=== PATIENT | male | born 1945 | race Caucasian/White ===

== ENCOUNTER 2016-11-27 05:37 | Inpatient (IN) ==
--- NOTE | 2016-11-13 15:29 | EKG Report ---
Stationary ECG Study [facility] Test Date: 11/13/2016 3:27:04 PM Pat Name: EDIS KELLEY Department: Room: Gender: M Retail Field Supervisor: starla 11/27/16 laura : 1945 Requested by: Glenn Melvin Order Number: [id number] Reading MD: HAO COATES Intervals Center Rate: 68 P: 48 MT: 193 QRS: 19 QRSD: 95 T: 34 QT: 387 QTc: 404 Interpretive Statements SINUS RHYTHM Electronically Signed On 11-13-16 18:12:50 CDT by HAO COATES [email or web address]
[2016-11-13 15:55] LABS: Basophils # 0.1 10*3/uL (0.0-0.2); Basophils % 0.9 % (0.0-0.8); Eosinophils # 0.6 10*3/uL (0.0-0.87); Eosinophils % 8.7 % (0.00-10.9); Hematocrit 40.3 VOL% (42.0-52.0); Hemoglobin 13.7 GM/DL (14.0-18.0); Immature Granulocytes % 0.6 %; Immature Granulocytes Absolute 0.04 #; Lymphocytes # 0.9 10*3/uL (1.4-4.0); Lymphocytes % 13.2 % (21.2-54.2); Mean Corpuscular Hemoglobin 30 PG (27-34); Mean Corpuscular Volume 87.8 FL (87-102); Mean Platelet Volume 8.8 FL (9.6-12.0); Monocytes # 0.8 10*3/uL (0.11-0.8); Monocytes % 11.1 % (1.7-12.7); Neutrophils # 4.5 10*3/uL (1.4-7.4); Neutrophils % 65.5 % (38.7-73.9); Platelet Count 254 T/CUMM (130-400); Red Blood Count 4.59 MC/CUMM (3.8-5.5); Red Cell Distribution Width 12.3 % (9.3-17.3); White Blood Count 6.9 T/CUMM (4-12)
[2016-11-13 15:59] LABS: Apearance,Urine CLEAR (Clear); Bilirubin,Urine Negative (Negative); Blood, Urine Negative (Negative); Glucose,Urine (UA) Negative (Negative); Ketones,Urine 5 mg/dL (Negative); Mucus,Urine Occasional /LPF (Occasional); Nitrite,Urine Negative (Negative); Protein,Urine Negative; RBC,Urine 1 /HPF (0-4); Urine Color Yellow (Yellow); Urine Specific Gravity 1.024 (1.001-1.035); Urine Urobilinogen < 2.0 EU/DL (0.2-1.0); WBC,Urine 1 /HPF (0-6)
[2016-11-13 16:09] LABS: PT Patient Result 11.1 SECS; Partial Thromboplastin Time 27.3 SECS (0-40)
[2016-11-13 16:29] LABS: Alanine Aminotransferase 15 U/L (16-61); Albumin 3.6 G/DL (3.4-5.0); Alkaline Phosphatase 84 U/L (45-117); Aspartate Amino Transferase 20 U/L (0-37); Bilirubin,Total < 0.39 MG/DL (0.2-1.0); Blood Urea Nitrogen 20 MG/DL (7-18); Calcium 9.4 MG/DL (8.5-10.1); Glucose 94 MG/DL (74-106); Osmolality,Calculated 283.3 MOS/KG (273-304); Potassium 3.7 MMOL/L (3.5-5.1); Sodium 141 MMOL/L (136-145); Total Protein 6.8 G/DL (6.4-8.3)
[2016-11-27] MEDS ORDERED: VANCOMYCIN INJ 1,000 MG in SODIUM CHLORIDE 0.9% 250 ML IV ONE ×2 (06:00→18:14)
--- NOTE | 2016-11-27 06:48 | History and Physical Update ---
History and Physical Update - History and Physical H&P was reviewed, the patient examined and there: are no changes in the patients condition since last H&P was completed.
[2016-11-27] MEDS ORDERED: FAMOTIDINE 20 MG TABLET PO ONE (06:49)
[2016-11-27] MEDS ORDERED: DIAZEPAM 5 MG TABLET PO ONE (06:50)
[2016-11-27] MEDS ORDERED: fentaNYL 100 MCG/2 ML VIAL ONE (06:54)
[2016-11-27] MEDS ORDERED: PROPOFOL 200 MG/20 ML VIAL IV ONE ×2 (06:54→10:25)
[2016-11-27] MEDS ORDERED: ACETAMINOPHEN 1,000 MG/100 ML VIAL IV ONE (06:55)
[2016-11-27] MEDS ORDERED: SODIUM CHLORIDE 0.9% 250 ML IV ONE (06:55)
[2016-11-27] MEDS ORDERED: VANCOMYCIN 1,000 MG VIAL ONE (07:30)
[2016-11-27] MEDS ORDERED: ceFAZolin 1,000 MG VIAL ONE (07:30)
[2016-11-27] MEDS ORDERED: DIAZEPAM 5 MG TABLET ONE (07:31)
[2016-11-27] MEDS ORDERED: SODIUM CHLORIDE 0.9% 100 ML IV ONE (07:31)
[2016-11-27] MEDS ORDERED: FAMOTIDINE 20 MG TABLET ONE (07:31)
[2016-11-27] MEDS: LACTATED RINGERS 1,000 ML IV SCH ×4 (08:00→20:17)
[2016-11-27] MEDS ORDERED: TRANEXAMIC ACID 1,000 MG/10 ML VIAL IV ONE (09:14)
[2016-11-27] MEDS ORDERED: BENZONATATE 100 MG CAPSULE PO PRN (10:10)
[2016-11-27] MEDS ORDERED: diphenhydrAMINE CAP 25 MG CAPSULE PO PRN (10:13)
[2016-11-27] MEDS ORDERED: ONDANSETRON 4 MG/2 ML VIAL IV PRN (10:13)
[2016-11-27] MEDS ORDERED: HYDROmorphone 2 MG/1 ML VIAL IV PRN ×2 (10:13)
[2016-11-27] MEDS ORDERED: oxyCODONE IR 5 MG TABLET PO PRN ×2 (10:13)
[2016-11-27] MEDS ORDERED: MAGNESIUM HYDROXIDE SUSP 30 ML UDCUP PO PRN (10:13)
--- NOTE | 2016-11-27 10:17 | Operative Note ---
Date of procedure: 11/27/16 Procedure: DIAGNOSIS: Left knee primary osteoarthrosis PROCEDURE: Left total knee arthroplasty (cpt #32486) SURGEON: She ANESTHESIA: Spinal with a postoperative adductor canal block PROCEDURE and FINDINGS: After adequate was induced, the patient's knee was prepped and draped in the usual sterile fashion. The limb was exsanguinated with Esmarch. Tourniquet was inflated to 300 mmHg. A median parapatellar approach was made. Femur was cut using an intramedullary guide and a 4 in 1 cutting jig in 5 degrees of valgus. ACL and menisci were excised. Tibia was cut using intramedullary guide. Patella was cut using freehand technique. Components were trialed. Tibial fin was prepared. Components are cemented in place using Palacos cement and modern cementing techniques. Cement was removed. A 1/8 inch Hemovac drain was placed. The knee was well-balanced and full range of motion with central tracking patella. Deep layers closed with 0-0 Vicryl. Superficial layers were closed with 2-0 and 3-0 Vicryl. Skin was approximated with sona. Triple antibiotic ointment and a sterile dressing was applied. Patient was transferred to recovery. A postoperative adductor canal block is anticipated. COMPONENTS: The Holly Persona system was used. 10 CR standard femur, G natural tibia, 10 mm liner, 35 mm patella TOURNIQUET TIME: 35 minutes Surgeon / Physician: Glenn Nowak Jr. Results - Labs CBC & BMP: 11/13/16 15:43 11/13/16 15:43 Discharge Plan - Discharge Medications No Action Simvastatin [Zocor] 80 mg PO BEDTIME Sertraline HCl 150 mg PO QAM Divalproex [Depakote] 500 mg PO BID Carvedilol [Coreg] 6.25 mg PO BID Meloxicam [Mobic] 15 mg PO QAM Magnesium Oxide [Magnesium] 500 mg PO Q7DAY Coenzyme Q10 400 mg PO BEDTIME Megakrill 400 mg PO BEDTIME Red Yeast Rice 1,200 mg PO BEDTIME Trazodone HCl 100 mg PO BEDTIME HYDROcodone/ACETAMIN 10-325 [[place] 10-325] 1 tablet PO TID PRN PRN Reason: Pain Theophylline ER Tab 150 mg PO BID Loratadine Tab [Claritin Tab] 10 mg PO QAM Mirtazapine [Remeron] 45 mg PO BEDTIME Aspirin [Ecotrin] 81 mg PO BEDTIME Glucosamine/MSM/Chondroitin A [Glucosamine Chondroit MSM Tab] 1 each PO BEDTIME hydroCHLOROthiazide [Hydrochlorothiazide] 12.5 mg PO QOTHER DAY Spironolactone 12.5 mg PO QOTHER DAY guaiFENesin [Guaifenesin] 400 mg PO TID Tiotropium Inhalation [Spiriva Handihaler] 18 mcg INH DAILY Prazosin [Minipress] 3 mg PO BEDTIME Melatonin/Pyridoxine HCl (B6) [Melatonin 3 mg Tablet] 12 mg PO BEDTIME Benzonatate 200 mg PO TID PRN PRN Reason: Cough Montelukast Tab [Singulair Tab] 10 mg PO DAILY amLODIPine [Norvasc] 5 mg PO DAILY - Follow Up or Referral - Forms/Instructions
[2016-11-27] MEDS ORDERED: ROPIVACAINE 0.5% 30 ML VIAL ONE (10:24)
--- NOTE | 2016-11-27 10:24 | Anesthesia Post-Op ---
Anesthesia Post OP - Post Ansesthetic Evaluation Patient seen in post op: Yes Resp: within normal limits CV: within normal limits Mental: within normal limits Temp: within normal limits [id number]: within normal limits Nausea and Vomiting: within normal limits Pain: within normal limits
[2016-11-27] MEDS ORDERED: LACTATED RINGERS 1,000 ML IV ONE (10:26)
[2016-11-27] MEDS ORDERED: KETAMINE 500 MG/10 ML VIAL ONE (10:26)
[2016-11-27] MEDS ORDERED: SODIUM CHLORIDE 0.9% 1,000 ML IV ONE (10:26)
[2016-11-27] MEDS ORDERED: KETOROLAC 30 MG/1 ML VIAL ONE (11:10)
[2016-11-27] MEDS: KETOROLAC 30 MG/1 ML VIAL IV SCH ×3 (11:10→22:46)
--- NOTE | 2016-11-27 11:55 | XRay Report ---
XR knee 2V LT Clinical Information: Joint replacement (left knee) Comparison: 12/31/2012 Findings: Status post left total knee arthroplasty. Hardware appears in position with no evidence of loosening or failure. Overlying soft tissue drains are noted. Prepatellar soft tissue swelling is also noted with skin snoa, as expected. Impression: No acute findings. Postsurgical changes without evidence of acute complication. PROCEDURE INTERPRETED AT [facility] DEPARTMENT OF RADIOLOGY Final Report Signed by: Ronal Patel
--- NOTE | 2016-11-27 14:08 | Orthopedic Progress Note ---
Orthopedics - Subjective Interval history: Mr. Dumont is doing extraordinarily well. He is comfortable. He can perform straight leg raise. Neurovascularly intact. Dressing is clean, dry and intact. Continue per protocol. Anticipate discharge tomorrow with outpatient physical therapy. Exam - Constitutional Vitals: Period Temp Pulse Resp BP Sys/Heart Pulse Ox Last 24 Hr 97.2 F-98.0 F 46-72 16-18 96-140/64-94 94-99 Results - Labs CBC & BMP: 11/13/16 15:43 11/13/16 15:43
[2016-11-27] MEDS: ceFAZolin 2,000 MG in PREMIX 1 EACH IV SCH ×2 (14:40→22:47)
[2016-11-27] MEDS: ACETAMINOPHEN 500 MG TABLET PO SCH ×2 (14:41→20:18)
--- NOTE | 2016-11-27 18:13 | Cardiology Consult Note ---
Mayelin Negron April RN, am scribing for, and in the presence of, Barry Wren MD 18:13. History of Present Illness - Data of Consult Patient: known to practice within the last 3 years Consult date: 11/27/16 Requesting Physician: Glenn Nowak Jr. 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 Dumont is a 71 year old male who is routinely followed by Dr. Erickson with a history of dyslipidemia, GERD, lung cancer, COPD, and hypertension. Surgical history includes tonsillectomy, bilateral shoulder surgeries and right knee. Family history is positive for mother with cancer. He reports he no longer smokes, stating he quit 20 years ago. Reportedly he rarely drinks alcohol. Mr. Dumont had an echocardiogram done at Dr. Erickson's office September 21, 2016 with ejection fraction 55%. I cannot find record of a stress test, but patient said Dr. Erickson in the office in August of this year and he mentions he had a negative stress testing within the last [address] Erickson felt patient would be at low risk for left total knee replacement with Dr. Nowak. Mr. Dumont was admitted November 27 to undergo left knee replacement. We are seeing him postoperatively. He denies any chest pain, shortness of breath, palpitations, dizziness. He is awake, alert, and without complaint. Vital signs have been stable. Cardiology addendum. Patient examined chart reviewed. Patient awake alert and responsive. O2 sat 96% on 2 L Blood pressure 124/80 Regular rhythm no murmur or gallop Clear lungs Abdomen benign Impression Status post left knee replacement Chronic hypertension Normal Lexiscan cardiac stress test August 2016 Ejection fraction 55% by recent echo Plan Labs in a.m. Routine postop care and analgesics Continue home meds CC: Glenn Nowak Jr., - Home Medications and Allergies Home Medications: Home Medications Medication Instructions Recorded Confirmed Type Aspirin [Ecotrin] 81 mg PO BEDTIME 12/13/15 11/27/16 History Carvedilol [Coreg] 6.25 mg PO BID 12/13/15 11/27/16 History Coenzyme Q10 400 mg PO BEDTIME 12/13/15 11/27/16 History Divalproex [Depakote] 500 mg PO BID 12/13/15 11/27/16 History Glucosamine/MSM/Chondroitin A 1 each PO BEDTIME 12/13/15 11/27/16 History [Glucosamine Chondroit MSM Tab] HYDROcodone/ACETAMIN 10-325 [[place] 1 tablet PO TID PRN 12/13/15 11/27/16 History 10-325] Loratadine Tab [Claritin Tab] 10 mg PO QAM 12/13/15 11/27/16 History Magnesium Oxide [Magnesium] 500 mg PO Q712/13/15 11/27/16 History Megakrill 400 mg PO BEDTIME 12/13/15 11/27/16 History Meloxicam [Mobic] 15 mg PO QAM 12/13/15 11/27/16 History Mirtazapine [Remeron] 45 mg PO BEDTIME 12/13/15 11/27/16 History Red Yeast Rice 1,200 mg PO BEDTIME 12/13/15 11/27/16 History Sertraline HCl 150 mg PO QAM 12/13/15 11/27/16 History Simvastatin [Zocor] 80 mg PO BEDTIME 12/13/15 11/27/16 History Theophylline ER Tab 150 mg PO BID 12/13/15 11/27/16 History Trazodone HCl 100 mg PO BEDTIME 12/13/15 11/27/16 History Spironolactone 12.5 mg PO QOTHER DAY 02/28/16 11/27/16 History hydroCHLOROthiazide 12.5 mg PO QOTHER DAY 02/28/16 11/27/16 History [Hydrochlorothiazide] Benzonatate 200 mg PO TID PRN 11/13/16 11/27/16 History Melatonin/Pyridoxine HCl (B6) 12 mg PO BEDTIME 11/13/16 11/27/16 History [Melatonin 3 mg Tablet] Montelukast Tab [Singulair Tab] 10 mg PO DAILY 11/13/16 11/27/16 History Prazosin [Minipress] 3 mg PO BEDTIME 11/13/16 11/27/16 History Tiotropium Inhalation [Spiriva 18 mcg INH DAILY 11/13/16 11/27/16 History Handihaler] amLODIPine [Norvasc] 5 mg PO DAILY 11/13/16 11/27/16 History guaiFENesin [Guaifenesin] 400 mg PO TID 11/13/16 11/27/16 History Omeprazole 20 mg PO DAILY 11/27/16 11/27/16 History Allergies/Adverse Reactions: Allergies Allergy/AdvReac Type Severity Reaction Status Date / Time losartan AdvReac Intermediate Cough Verified 11/27/16 07:07 morphine AdvReac Intermediate Nausea/Vomi Verified 12/13/15 11:15 ting lisinopril AdvReac Cough Verified 02/28/16 08:51 - Constitutional Constitutional: Present: as per HPI - EENT Eyes: Present: requires corrective lense - Cardiovascular Cardiovascular: Absent: chest pain at rest, chest pain with activity, diaphoresis, dyspnea, dyspnea on exertion, edema, radiating jaw, neck or arm pain, lightheadedness, orthopnea, palpitations - Respiratory Respiratory: Absent: cough, dyspnea, hemoptysis, dyspnea on exertion, wheezing - Gastrointestinal Gastrointestinal: Present: diarrhea. Absent: abdominal pain, constipation, hematemesis, hematochezia, melena, nausea, vomiting - Genitourinary Genitourinary: Absent: dysuria, hematuria - Musculoskeletal Musculoskeletal: Present: limited range of motion - Neurological Neurological: Present: abnormal gait. Absent: dizziness, frequent falls, headache(s), syncope - Psychiatric Psychiatric: Absent: anxiety, depression - Endocrine Endocrine: Absent: fatigue - Hematologic/Lymphatic Hematologic/Lymphatic: Absent: easy bleeding, easy bruising Medical,Surgical,& Family Hx - Medical History Cardio: History of: Hypertension Psychological: History of: Anxiety Disorders, Psychiatric Problems (PTSD- TROUBLE SLEEPING) HEENT: History of: Eye Problem (Glasses; Near Sighted), Dental Problems (CAPS/ CROWNS) Endocrine: History of: Dyslipidemia Respiratory: History of: Bronchitis (DR. [facility]), COPD, Lung Cancer (Squamous Cell Carcinoma Rt Middle Lobe 2012/Chemo & Radiation Dr. Callejas), Respiratory Problems (Currently in 22 month Observation for Lung Ca 12/2015;FLU VAC Apr 2015) Comment Only: Pneumonia (Pneum Vac 2013) Gastrointestinal: History of: GERD, Hepatitis (Age 14-Treated), GI Problems ( Chronic Diarrhea) Musculoskeletal: History of: Musculoskeletal Problems (Rt Knee OA;Surgeries Cont :1974 Lt Elbow Fx;2003 Rt wrist Reconstruction) Other: History of: Cancer (Lung Dx 2012 Dr. Callejas) - Surgical History Cardiac Surgeries: Sugical HX of: Vascular Access Devices (Mediport Lt Chest- REMOVED) Thoracic Surgeries: Surgical HX of;: Lobectomy (Rt Middle Lobe) HEENT Surgeries: Surgical HX of: Tonsilectomy & Adenoidectomy Orthopedic Surgeries: Surgical HX of;: Implanted Devices (2007 Bilateral Shoulder Replacement), Orthopedic Surgery (1955 Lt Leg Fx;1958 Lt arm Fx;1960 Lt wrist Fx;1962 Rt Collar Bone Fx), Spinal Surgery (1966 Neck Fx), Total Knee Replacement (12/14/[address] Nowak; 11/27/16 LT) - Social History Smoking Status: Former smoker Have you smoked in the last 12 months: No Frequency of Alcohol Use: Rarely Type of Drug Use: None Marital Status: Lives With:: Spouse Functional capacity: uses cane/walker Physical Examination Vital Signs Temp Pulse Resp BP Pulse Ox 97.2 F L 72 18 130/94 95 11/27/16 07:21 11/27/16 07:21 11/27/16 07:21 11/27/16 07:21 11/27/16 07:21 General: Present: Appears Well, No Apparent Distress HEENT: Present: PERRL, Mucus Membranes Moist Neck: Present: Supple Neck, Midline Trachea, No Bruit Cardiac: Present: Reg Rate and Rhythm, Systolic Murmur Lungs: Present: Normal Breath Sounds, No Wheeze, Rales, Rhonchi Neuro: Absent: Resting Tremor, Essential Tremor Abdomen: Present: Soft, Active Bowel Sounds, Non-Tender. Absent: Distended Skin: Absent: Rash, Suspicious Lesions Incision: Present: Incision Site (Left lower extremity is bandaged) Extremities: Present: No Edema, Normal Upper Extr. Pulses, Normal Lower Extr. Pulses, Other (Unable to assess left lower extremity as it is bandaged) Result/EKG - Labs CBC & BMP: 11/13/16 15:43 11/13/16 15:43 Labs: Laboratory Results - last 24 hr 11/27/16 07:29 Blood Type O POSITIVE Antibody Screen Negative Siena Negron Thomas, MD, personally performed the services described in this documentation, ascribed by Teodora Dick RN in my presence, and it is both accurate and complete 813 .
[2016-11-27] MEDS: DIVALPROEX 500 MG TABLET PO SCH (20:15)
[2016-11-27] MEDS: DOCUSATE SODIUM 100 MG CAPSULE PO SCH (20:18)
[2016-11-27] MEDS: CARVEDILOL 6.25 MG TABLET PO SCH (20:18)
[2016-11-27] MEDS: THEOPHYLLINE ER 300 MG TABLET PO SCH (20:26)
[2016-11-27] MEDS ORDERED: SIMVASTATIN 80 MG TABLET PO SCH (21:00)
[2016-11-27] MEDS ORDERED: COENZYME Q10 100 MG CAPSULE PO SCH (21:00)
[2016-11-27] MEDS ORDERED: MIRTAZAPINE 15 MG TABLET PO SCH (21:00)
[2016-11-27] MEDS ORDERED: MEGAKRILL PO SCH (21:00)
[2016-11-27] MEDS ORDERED: traZODone 50 MG TABLET PO SCH (21:00)
[2016-11-27] MEDS ORDERED: PRAZOSIN 1 MG CAPSULE PO SCH (21:00)
[2016-11-27] MEDS ORDERED: MELATONIN 3 MG TABLET PO SCH (21:00)
[2016-11-28] MEDS: ACETAMINOPHEN 500 MG TABLET PO SCH ×2 (02:08→09:13)
[2016-11-28 05:18] LABS: Basophils % 0.5 % (0.0-0.8); Eosinophils # 0.4 10*3/uL (0.0-0.87); Eosinophils % 7.3 % (0.00-10.9); Hematocrit 30.8 VOL% (42.0-52.0); Hemoglobin 10.6 GM/DL (14.0-18.0); Immature Granulocytes % 0.5 %; Immature Granulocytes Absolute 0.03 #; Lymphocytes # 0.6 10*3/uL (1.4-4.0); Lymphocytes % 10.1 % (21.2-54.2); Mean Corpuscular HGB Conc 34.4 GM/DL (32-36); Mean Corpuscular Hemoglobin 30 PG (27-34); Mean Corpuscular Volume 87.3 FL (87-102); Mean Platelet Volume 8.9 FL (9.6-12.0); Monocytes # 0.9 10*3/uL (0.11-0.8); Neutrophils # 3.8 10*3/uL (1.4-7.4); Neutrophils % 66.6 % (38.7-73.9); Platelet Count 214 T/CUMM (130-400); Red Blood Count 3.53 MC/CUMM (3.8-5.5); Red Cell Distribution Width 12.4 % (9.3-17.3); White Blood Count 5.7 T/CUMM (4-12)
[2016-11-28 05:51] LABS: Osmolality,Calculated 287.7 MOS/KG (273-304); Potassium 3.4 MMOL/L (3.5-5.1)
[2016-11-28] MEDS: KETOROLAC 30 MG/1 ML VIAL IV SCH (06:19)
[2016-11-28] MEDS: LACTATED RINGERS 1,000 ML IV SCH (06:21)
--- NOTE | 2016-11-28 06:58 | Discharge Summary ---
Hospital Course - Hospital Course Hospital Course: Mr. Dumont was admitted after undergoing an uncomplicated left total knee replacement. He received perioperative DVT and antimicrobial prophylaxis. He received physical therapy. Cardiology was consulted. Patient did well through his hospitalization. He was discharged to outpatient physical therapy. Discharge Plan - Discharge Data Disposition: Disch To Home/Self Care Discharge Diet: advance to your usual diet Hygiene: may shower Weight Bearing at Discharge: weight bear as tolerated Driving: not until seen by doctor - Discharge Medications Continue Simvastatin [Zocor] 80 mg PO BEDTIME Sertraline HCl 150 mg PO QAM Divalproex [Depakote] 500 mg PO BID Carvedilol [Coreg] 6.25 mg PO BID Meloxicam [Mobic] 15 mg PO QAM Magnesium Oxide [Magnesium] 500 mg PO Q7DAY Coenzyme Q10 400 mg PO BEDTIME Megakrill 400 mg PO BEDTIME Red Yeast Rice 1,200 mg PO BEDTIME Trazodone HCl 100 mg PO BEDTIME HYDROcodone/ACETAMIN 10-325 [[place] 10-325] 1 tablet PO TID PRN PRN Reason: Pain Theophylline ER Tab 150 mg PO BID Loratadine Tab [Claritin Tab] 10 mg PO QAM Mirtazapine [Remeron] 45 mg PO BEDTIME Aspirin [Ecotrin] 81 mg PO BEDTIME Glucosamine/MSM/Chondroitin A [Glucosamine Chondroit MSM Tab] 1 each PO BEDTIME hydroCHLOROthiazide [Hydrochlorothiazide] 12.5 mg PO QOTHER DAY Spironolactone 12.5 mg PO QOTHER DAY guaiFENesin [Guaifenesin] 400 mg PO TID Tiotropium Inhalation [Spiriva Handihaler] 18 mcg INH DAILY Prazosin [Minipress] 3 mg PO BEDTIME Melatonin/Pyridoxine HCl (B6) [Melatonin 3 mg Tablet] 12 mg PO BEDTIME Benzonatate 200 mg PO TID PRN PRN Reason: Cough Montelukast Tab [Singulair Tab] 10 mg PO DAILY amLODIPine [Norvasc] 5 mg PO DAILY Omeprazole 20 mg PO DAILY - Follow Up or Referral - Forms/Instructions Additional Discharge Instructions: Daily dry dressing changes. Weightbearing as tolerated. Arrange walker and bedside commode for home use. Wear LORETO hose for 1 month. Follow-up appointment in 10-14 days. Set up outpatient physical therapy 3 times a week for 4 weeks. Prescription for [place] 10 with 30 tablets was written. Exam - Constitutional Vitals: Period Temp Pulse Resp BP Sys/Heart Pulse Ox Last 24 Hr 97.2 F-98.5 F 46-89 16-20 96-144/55-94 93-99 Discharge Results Procedures and tests throughout hospitalization: Pending Orders 11/29/16 04:00 Comp Blood Count Auto Diff IN AM 11/30/16 04:00 Comp Blood Count Auto Diff IN AM Labs on day of discharge: Labs from last 24 hours 11/28/16 11/28/16 11/27/16 04:51 04:51 07:29 WBC 5.7 RBC 3.53 L Hgb 10.6 L Hct 30.8 L MCV 87.3 MCH 30 MCHC 34.4 RDW 12.4 Plt Count 214 MPV 8.9 L Neut % (Auto) 66.6 Lymph % (Auto) 10.1 L Stokes % (Auto) 15.0 H Eos % (Auto) 7.3 Baso % (Auto) 0.5 Neut # (Auto) 3.8 Lymph # (Auto) 0.6 L Stokes # (Auto) 0.9 H Eos # (Auto) 0.4 Baso # (Auto) 0.0 Immature Gran % 0.5 Nucleated RBC % 0.0 Immature Gran # 0.03 Nucleated RBCs # 0.00 Immature Plt Fraction 0.0 Sodium 145 Potassium 3.4 L Chloride 108 H Carbon Dioxide 33 H Anion Gap 7.4 BUN 12 Creatinine 1.00 GFR Calculation 99 BUN/Creatinine Ratio 12.00 Glucose 93 Calculated Osmolality 287.7 Calcium 8.0 L Blood Type O POSITIVE Antibody Screen Negative DS: Provider Date of admission: 11/27/16 05:37 Primary care physician: Augie Ocampo MD Attending physician on admission: Glenn Nowak Jr., Consults: 11/27/16 10:13 Consult to Case Mgmt/Social Srvs [CONS] Routine Reason for Case Mgmt/Social Srvs: Rehab Home Health Equipment Consult Comment: Bedside Commode, CPM, Walker Consult to Occupational Therapy [CONS] Routine Reason for Occupational Therapy: Evaluate and Treat Consult Comment: ADL's Consult to Physical Therapy [CONS] Routine Reason for Physical Therapy: Evaluate and Treat Gait Training 11/27/16 11:42 Consult to Physician [CONS] Routine Comment: Consulting Provider: You Erickson Consulting Provider Notified: Yes When should Consulting Provider be notified: Now Person Notified: brandy brown Date Notified: 11/27/16 Time Notified: 11:44 11/27/16 11:56 Consult to Pastoral Services [CONS] Routine Comment: Pastoral Screen: Request F[employer]er [employer]er Visit Pastoral Screen Source of Request: Patient Family Discharging clinician: Glenn Nowak Jr., Expected date of discharge: 11/28/16
[2016-11-28] MEDS ORDERED: IPRATROPIUM 500 MCG/2.5 ML NEB RESP TX SCH (07:00)
[2016-11-28] MEDS ORDERED: FONDAPARINUX 2.5 MG/0.5 ML SYRINGE SUBCUT SCH (07:00)
--- NOTE | 2016-11-28 08:01 | Cardiology Progress Note ---
Cardiology - PN: Subj Interval history: Cardiology note Postop day #1 left knee replacement No temperature. Good appetite. Regular rhythm no murmur or gallop Chest clear Abdomen benign O2 sat 95% room air Blood pressure 120/66 Lab data Hemoglobin 10.6 hematocrit 30.8 BUN 12 creatinine 1.0 glucose 93 Plan Discharge today Rehab as outlined Exam (Progress Note) - Constitutional Vitals: Period Temp Pulse Resp BP Sys/Heart Pulse Ox Last 24 Hr 97.2 F-98.5 F 46-89 16-20 96-144/55-79 93-99 Result/EKG - Labs CBC & BMP: 11/28/16 04:51 11/28/16 04:51 Labs: Laboratory Results - last 24 hr 11/27/16 11/28/16 11/28/16 07:29 04:51 04:51 WBC 5.7 RBC 3.53 L Hgb 10.6 L Hct 30.8 L MCV 87.3 MCH 30 MCHC 34.4 RDW 12.4 Plt Count 214 MPV 8.9 L Neut % (Auto) 66.6 Lymph % (Auto) 10.1 L [place] % (Auto) 15.0 H Eos % (Auto) 7.3 Baso % (Auto) 0.5 Neut # (Auto) 3.8 Lymph # (Auto) 0.6 L [place] # (Auto) 0.9 H Eos # (Auto) 0.4 Baso # (Auto) 0.0 Immature Gran % 0.5 Nucleated RBC % 0.0 Immature Gran # 0.03 Nucleated RBCs # 0.00 Immature Plt Fraction 0.0 Sodium 145 Potassium 3.4 L Chloride 108 H Carbon Dioxide 33 H Anion Gap 7.4 BUN 12 Creatinine 1.00 GFR Calculation 99 BUN/Creatinine Ratio 12.00 Glucose 93 Calculated Osmolality 287.7 Calcium 8.0 L Blood Type O POSITIVE Antibody Screen Negative Specialty Discharge - Follow Up or Referrals Follow up with: Glenn Nowak Jr., MD [Physician] -
[2016-11-28] MEDS ORDERED: MONTELUKAST 10 MG TABLET PO SCH (09:00)
[2016-11-28] MEDS ORDERED: LORATADINE 10 MG TABLET PO SCH (09:00)
[2016-11-28] MEDS ORDERED: SERTRALINE 100 MG TABLET PO SCH (09:00)
[2016-11-28] MEDS ORDERED: amLODIPine 5 MG TABLET PO SCH (09:00)
[2016-11-28] MEDS: DOCUSATE SODIUM 100 MG CAPSULE PO SCH (09:13)
[2016-11-28] MEDS: DIVALPROEX 500 MG TABLET PO SCH (09:14)
[2016-11-28] MEDS: CARVEDILOL 6.25 MG TABLET PO SCH (09:14)
[2016-11-28] MEDS: THEOPHYLLINE ER 300 MG TABLET PO SCH (09:15)
[2016-11-28] MEDS ORDERED: CELECOXIB 200 MG CAPSULE PO SCH (11:00)
[2016-11-28 11:16] VITALS: BP 123/62
[2016-11-29] MEDS ORDERED: SPIRONOLACTONE 25 MG TABLET PO SCH (09:00)
[2016-11-29] MEDS ORDERED: hydroCHLOROthiazide 12.5 MG CAPSULE PO SCH (09:00)
[2016-12-04] MEDS ORDERED: MAGNESIUM OXIDE 400 MG TABLET PO SCH (09:00)
== END 2016-11-28 13:03 | disposition home or self-care (01) | DRG 470 ==
LOC: N.SDSINP 05:37 → N.3E 11:14
PROVIDERS: ADMIT Orthopaedic Surgery; ATTEND Orthopaedic Surgery

== ENCOUNTER 2017-10-15 05:34 | Inpatient (IN) ==
[2017-10-19 12:32] VITALS: BP 136/94
== END 2017-10-19 12:50 | disposition home or self-care (01) | DRG 330 ==
LOC: N.OR 05:34 → N.SDSINP 05:39 → N.3E 10:34 → N.4E 16:20
PROVIDERS: ADMIT Surgery; ATTEND Surgery

== ENCOUNTER 2019-09-23 05:13 | Inpatient (IN) ==
[2019-09-17 11:30] LABS: Basophils # 0.1 10*3/uL (0.0-0.2); Basophils % 0.9 % (0.0-0.8); Eosinophils # 0.7 10*3/uL (0.0-0.87); Eosinophils % 10.5 % (0.00-10.9); Hematocrit 45.3 VOL% (42.0-52.0); Hemoglobin 15.6 GM/DL (14.0-18.0); Immature Granulocytes % 0.6 %; Immature Granulocytes Absolute 0.04 #; Lymphocytes # 0.8 10*3/uL (1.4-4.0); Lymphocytes % 12.2 % (21.2-54.2); Mean Corpuscular HGB Conc 34.4 GM/DL (32-36); Mean Corpuscular Volume 89.9 FL (87-102); Mean Platelet Volume 9.3 FL (9.6-12.0); Monocytes % 11.8 % (1.7-12.7); Platelet Count 225 T/CUMM (130-400); Red Blood Count 5.04 MC/CUMM (3.8-5.5); Red Cell Distribution Width 12.3 % (9.3-17.3); White Blood Count 6.4 T/CUMM (4-12)
[2019-09-17 11:46] LABS: PT Patient Result 10.9 SECS (9.8-11.9)
[2019-09-17 11:48] LABS: Alanine Aminotransferase 13 U/L (16-61); Albumin 3.6 G/DL (3.4-5.0); Alkaline Phosphatase 75 U/L (45-117); Aspartate Amino Transferase 20 U/L (0-37); Bilirubin,Total < 0.39 MG/DL (0.2-1.0); Blood Urea Nitrogen 24 MG/DL (7-18); Calcium 9.3 MG/DL (8.5-10.1); Estimated Glom Filtration Rate 97 ML/MIN; Glucose 80 MG/DL (74-106); Osmolality,Calculated 277.7 MOS/KG (273-304); Total Protein 7.3 G/DL (6.4-8.3)
[2019-09-17 12:02] LABS: Apearance,Urine CLEAR (Clear); Bilirubin,Urine Negative (Negative); Blood, Urine Negative (Negative); Glucose,Urine (UA) Negative (Negative); Ketones,Urine Negative (Negative); Mucus,Urine Moderate /LPF (Occasional); Nitrite,Urine Negative (Negative); Protein,Urine Negative; RBC,Urine 1 /HPF (0-4); Urine Color Yellow (Yellow); Urine Specific Gravity 1.018 (1.001-1.035); Urine Urobilinogen < 2.0 EU/DL (0.2-1.0); WBC,Urine <1 /HPF (0-6)
[2019-09-23] MEDS ORDERED: ceFAZolin 1,000 MG VIAL ONE (06:08)
[2019-09-23] MEDS ORDERED: VANCOMYCIN 1,000 MG VIAL ONE (06:08)
[2019-09-23] MEDS ORDERED: TRANEXAMIC ACID 1,000 MG/10 ML VIAL ONE ×2 (06:13→09:10)
[2019-09-23] MEDS ORDERED: BUPIVACAINE SPINAL 0.75% 2 ML AMP SPINAL ONE (06:13)
[2019-09-23] MEDS ORDERED: ACETAMINOPHEN 500 MG TABLET PO ONE (06:17)
[2019-09-23] MEDS ORDERED: FAMOTIDINE 20 MG TABLET PO ONE (06:17)
[2019-09-23] MEDS ORDERED: DIAZEPAM 5 MG TABLET PO ONE (06:17)
[2019-09-23] MEDS ORDERED: GABAPENTIN 400 MG CAPSULE PO ONE (06:17)
[2019-09-23] MEDS ORDERED: VANCOMYCIN INJ 1,000 MG in SODIUM CHLORIDE 0.9% 250 ML IV ONE (06:30)
[2019-09-23] MEDS ORDERED: LACTATED RINGERS 1,000 ML IV SCH (06:30)
[2019-09-23] MEDS ORDERED: FAMOTIDINE 20 MG TABLET ONE (06:57)
[2019-09-23] MEDS ORDERED: GABAPENTIN 400 MG CAPSULE ONE (06:57)
[2019-09-23] MEDS ORDERED: ACETAMINOPHEN 500 MG TABLET ONE (06:57)
[2019-09-23] MEDS ORDERED: BACITRACIN OINT 0.9 GM PACK TOP ONE ×2 (07:23→09:10)
[2019-09-23] MEDS ORDERED: diphenhydrAMINE CAP 25 MG CAPSULE PO PRN (07:23)
[2019-09-23] MEDS ORDERED: HYDROmorphone 2 MG/1 ML VIAL IV PRN ×2 (07:27)
[2019-09-23] MEDS ORDERED: ONDANSETRON 4 MG/2 ML VIAL IV PRN (07:27)
[2019-09-23] MEDS ORDERED: MAGNESIUM HYDROXIDE SUSP 30 ML UDCUP PO PRN (07:27)
[2019-09-23] MEDS ORDERED: DEXMEDETOMIDINE 200 MCG/2 ML VIAL ONE (08:09)
[2019-09-23] MEDS ORDERED: BUPIVACAINE MPF 0.5% /EPI 30 ML VIAL ONE (08:49)
[2019-09-23] MEDS ORDERED: DEXAMETHASONE 4 MG/1 ML VIAL ONE (08:49)
[2019-09-23] MEDS ORDERED: fentaNYL 100 MCG/2 ML VIAL ONE (08:56)
[2019-09-23] MEDS ORDERED: MIDAZOLAM 2 MG/2 ML VIAL ONE (08:57)
[2019-09-23] MEDS ORDERED: SODIUM CHLORIDE 0.9% 100 ML IV ONE (08:57)
[2019-09-23] MEDS ORDERED: LACTATED RINGERS 1,000 ML IV ONE (08:57)
[2019-09-23] MEDS ORDERED: PHENYLEPHRINE 1 MG/10 ML SYRINGE IV ONE (08:57)
[2019-09-23] MEDS ORDERED: ePHEDrine 50 MG/ML VIAL ONE (08:57)
[2019-09-23 08:58] LABS: Apearance,Urine CLEAR (Clear); Bacteria,Urine Occasional /HPF (Few); Bilirubin,Urine Negative (Negative); Blood, Urine Negative (Negative); Glucose,Urine (UA) Negative (Negative); Ketones,Urine Negative (Negative); Mucus,Urine Occasional /LPF (Occasional); Nitrite,Urine Negative (Negative); Protein,Urine Negative; RBC,Urine 2 /HPF (0-4); Squamous Epithelial Cell,Urine Occasional /HPF (0-10); Urine Color Yellow (Yellow); Urine Specific Gravity 1.018 (1.001-1.035); Urine Urobilinogen < 2.0 EU/DL (0.2-1.0); WBC,Urine <1 /HPF (0-6)
[2019-09-23] MEDS ORDERED: LIDOCAINE 2% 5 ML VIAL ONE (08:58)
[2019-09-23] MEDS ORDERED: propofoL 200 MG/20 ML VIAL IV ONE (08:58)
[2019-09-23] MEDS: DOCUSATE SODIUM 100 MG CAPSULE PO SCH ×2 (10:53→20:29)
[2019-09-23] MEDS: MONTELUKAST 10 MG TABLET PO SCH (10:53)
[2019-09-23] MEDS: ceFAZolin 1,000 MG in SYRINGE 1 EACH IV ONE ×2 (10:54→12:04)
[2019-09-23] MEDS: KETOROLAC 15 MG/1 ML VIAL IV SCH ×3 (10:56→20:29)
[2019-09-23] MEDS ORDERED: IPRATROPIUM 500 MCG/2.5 ML NEB RESP TX SCH (11:00)
[2019-09-23] MEDS: LACTATED RINGERS 1,000 ML IV SCH ×2 (11:06→20:29)
[2019-09-23] MEDS: ceFAZolin 2,000 MG in PREMIX 1 EACH IV SCH ×2 (11:06→20:27)
[2019-09-23] MEDS: ALBUTEROL/IPRATROPIUM 3 ML NEB RESP TX SCH ×2 (12:25→19:07)
[2019-09-23] MEDS: DIVALPROEX 500 MG TABLET PO SCH (20:28)
[2019-09-23] MEDS: THEOPHYLLINE ER 300 MG TABLET PO SCH (20:29)
[2019-09-23] MEDS: carvediloL 6.25 MG TABLET PO SCH (20:29)
[2019-09-23] MEDS ORDERED: SIMVASTATIN 80 MG TABLET PO SCH (21:00)
[2019-09-23] MEDS ORDERED: traZODone 50 MG TABLET PO SCH (21:00)
[2019-09-23] MEDS ORDERED: PRAZOSIN 1 MG CAPSULE PO SCH (21:00)
[2019-09-24] MEDS: KETOROLAC 15 MG/1 ML VIAL IV SCH ×2 (00:29→05:14)
[2019-09-24] MEDS: ALBUTEROL/IPRATROPIUM 3 ML NEB RESP TX SCH ×3 (01:05→13:45)
[2019-09-24] MEDS ORDERED: FONDAPARINUX 2.5 MG/0.5 ML SYRINGE SUBCUT SCH (06:00)
[2019-09-24 06:11] LABS: Basophils % 0.3 % (0.0-0.8); Eosinophils # 0.1 10*3/uL (0.0-0.87); Eosinophils % 0.8 % (0.00-10.9); Hematocrit 33.6 VOL% (42.0-52.0); Immature Granulocytes % 0.4 %; Immature Granulocytes Absolute 0.03 #; Lymphocytes # 0.7 10*3/uL (1.4-4.0); Lymphocytes % 9.4 % (21.2-54.2); Mean Corpuscular HGB Conc 35.7 GM/DL (32-36); Mean Corpuscular Volume 87.7 FL (87-102); Monocytes % 12.7 % (1.7-12.7); Neutrophils % 76.4 % (38.7-73.9); Platelet Count 165 T/CUMM (130-400); Red Blood Count 3.83 MC/CUMM (3.8-5.5); Red Cell Distribution Width 12.4 % (9.3-17.3); White Blood Count 7.5 T/CUMM (4-12)
[2019-09-24 06:30] LABS: Calcium 8.3 MG/DL (8.5-10.1); Osmolality,Calculated 280.4 MOS/KG (273-304)
[2019-09-24] MEDS: LACTATED RINGERS 1,000 ML IV SCH (07:33)
[2019-09-24] MEDS: carvediloL 6.25 MG TABLET PO SCH (08:56)
[2019-09-24] MEDS: DOCUSATE SODIUM 100 MG CAPSULE PO SCH (08:56)
[2019-09-24] MEDS: THEOPHYLLINE ER 300 MG TABLET PO SCH (08:56)
[2019-09-24] MEDS: MONTELUKAST 10 MG TABLET PO SCH (08:57)
[2019-09-24] MEDS: DIVALPROEX 500 MG TABLET PO SCH (08:57)
[2019-09-24] MEDS ORDERED: CETIRIZINE 10 MG TABLET PO SCH (09:00)
[2019-09-24] MEDS ORDERED: hydroCHLOROthiazide 12.5 MG CAPSULE PO SCH (09:00)
[2019-09-24] MEDS ORDERED: FLUTICASONE 50 MCG NASAL SPRAY 16 GM BOTTLE BOTH NARES SCH (09:00)
[2019-09-24] MEDS ORDERED: POTASSIUM GLUCONATE 500 MG TABLET PO SCH (09:00)
[2019-09-24] MEDS ORDERED: PANTOPRAZOLE 40 MG TABLET PO SCH (09:00)
[2019-09-24] MEDS ORDERED: SERTRALINE 100 MG TABLET PO SCH (09:00)
[2019-09-24] MEDS ORDERED: COENZYME Q10 100 MG CAPSULE PO SCH (09:00)
[2019-09-24] MEDS ORDERED: amLODIPine 5 MG TABLET PO SCH (09:00)
[2019-09-24 11:34] VITALS: BP 134/69
[2019-09-24] MEDS ORDERED: CELECOXIB 200 MG CAPSULE PO SCH (14:00)
[2019-09-24] MEDS ORDERED: ASPIRIN EC 81 MG TABLET PO SCH (19:00)
== END 2019-09-24 14:20 | disposition home health service (06) | DRG 470 ==
LOC: N.SDSINP 05:13 → N.3E 09:59
PROVIDERS: ADMIT Orthopaedic Surgery; ATTEND Orthopaedic Surgery

== ENCOUNTER 2020-11-02 05:55 | Inpatient (IN) ==
[2020-10-28 16:26] LABS: Basophils % 0.6 % (0.0-0.8); Eosinophils # 0.8 10*3/uL (0.0-0.87); Eosinophils % 10.4 % (0.00-10.9); Hematocrit 42.3 VOL% (42.0-52.0); Hemoglobin 14.8 GM/DL (14.0-18.0); Immature Granulocytes % 0.4 %; Immature Granulocytes Absolute 0.03 #; Lymphocytes % 13.8 % (21.2-54.2); Mean Corpuscular Volume 88.7 FL (87-102); Mean Platelet Volume 9.1 FL (9.6-12.0); Monocytes % 9.8 % (1.7-12.7); Platelet Count 252 T/CUMM (130-400); Red Blood Count 4.77 MC/CUMM (3.8-5.5); Red Cell Distribution Width 12.3 % (9.3-17.3); White Blood Count 7.2 T/CUMM (4-12)
[2020-10-28 16:44] LABS: Calcium 9.2 MG/DL (8.5-10.1); Osmolality,Calculated 286.3 MOS/KG (273-304); Potassium 3.7 MMOL/L (3.5-5.1)
[2020-11-02] MEDS ORDERED: ERTAPENEM 1,000 MG VIAL ONE (05:56)
[2020-11-02] MEDS ORDERED: ALVIMOPAN 12 MG CAPSULE PO ONE (06:00)
[2020-11-02] MEDS ORDERED: LACTATED RINGERS 1,000 ML IV SCH (07:30)
[2020-11-02] MEDS ORDERED: fentaNYL 100 MCG/2 ML VIAL ONE ×5 (09:24→16:49)
[2020-11-02] MEDS ORDERED: LIDOCAINE 2% 5 ML VIAL ONE (09:24)
[2020-11-02] MEDS ORDERED: ROCURONIUM 50 MG/5 ML VIAL IV ONE (09:24)
[2020-11-02] MEDS ORDERED: MIDAZOLAM 2 MG/2 ML VIAL ONE ×2 (09:24→09:54)
[2020-11-02] MEDS ORDERED: propofoL 200 MG/20 ML VIAL IV ONE (09:24)
[2020-11-02] MEDS ORDERED: SEVOFLURANE 1 UNIT/15 MINUTE INH ONE (09:24)
[2020-11-02] MEDS ORDERED: ROPIVACAINE 0.5% 30 ML VIAL ONE (09:43)
[2020-11-02] MEDS ORDERED: LIDOCAINE 1% 5 ML VIAL ONE (09:43)
[2020-11-02] MEDS ORDERED: DEXAMETHASONE 4 MG/1 ML VIAL ONE ×2 (09:43→11:07)
[2020-11-02] MEDS ORDERED: ACETAMINOPHEN 500 MG TABLET PO STA (09:45)
[2020-11-02] MEDS ORDERED: DIAZEPAM 5 MG TABLET PO STA (09:46)
[2020-11-02] MEDS ORDERED: DIAZEPAM 5 MG TABLET ONE (09:48)
[2020-11-02] MEDS ORDERED: ACETAMINOPHEN 500 MG TABLET ONE (09:49)
[2020-11-02] MEDS ORDERED: TISSUE ADHESIVE 1 EACH APPLICATOR TOP ONE (10:08)
[2020-11-02] MEDS ORDERED: INDOCYANINE GREEN 25 MG VIAL IV ONE ×2 (10:09→16:16)
[2020-11-02] MEDS ORDERED: ONDANSETRON 4 MG/2 ML VIAL ONE ×2 (11:07→17:29)
[2020-11-02] MEDS ORDERED: LACTATED RINGERS 1,000 ML IV ONE (11:21)
[2020-11-02] MEDS ORDERED: METOPROLOL TARTRATE 5 MG/5 ML VIAL IV ONE (14:52)
[2020-11-02] MEDS ORDERED: hydrALAZINE 20 MG/1 ML VIAL ONE (15:01)
[2020-11-02] MEDS ORDERED: ACETAMINOPHEN INJ 1,000 MG/100 ML VIAL IV ONE (16:52)
[2020-11-02 17:06] LABS: Bacteria,Urine Occasional /HPF (Few); Bilirubin,Urine Negative (Negative); Blood, Urine Large mg/dL (Negative); Glucose,Urine (UA) Negative (Negative); Ketones,Urine Negative (Negative); Mucus,Urine Occasional /LPF (Occasional); Nitrite,Urine Negative (Negative); Protein,Urine Negative; RBC,Urine 31 /HPF (0-4); Squamous Epithelial Cell,Urine Occasional /HPF (0-10); Urine Appearance CLEAR (Clear); Urine Color BLUE (Yellow); Urine Specific Gravity 1.005 (1.001-1.035)
[2020-11-02] MEDS ORDERED: HYDROmorphone 2 MG/1 ML VIAL ONE (17:29)
[2020-11-02] MEDS: HYDROmorphone 2 MG/1 ML VIAL IV PRN ×2 (17:31→17:45)
[2020-11-02] MEDS ORDERED: ONDANSETRON 4 MG/2 ML VIAL IV PRN ×2 (17:57→18:53)
[2020-11-02] MEDS ORDERED: DICLOFENAC 1% GEL 100 GM TUBE TOP PRN (18:53)
[2020-11-02] MEDS ORDERED: diphenhydrAMINE CAP 25 MG CAPSULE PO PRN (18:53)
[2020-11-02 19:13] LABS: Basophils % 0.1 % (0.0-0.8); Eosinophils % 0.1 % (0.00-10.9); Hematocrit 44.6 VOL% (42.0-52.0); Hemoglobin 15.3 GM/DL (14.0-18.0); Immature Granulocytes % 0.5 %; Immature Granulocytes Absolute 0.06 #; Lymphocytes # 0.3 10*3/uL (1.4-4.0); Lymphocytes % 2.3 % (21.2-54.2); Mean Corpuscular HGB Conc 34.3 GM/DL (32-36); Mean Corpuscular Volume 90.3 FL (87-102); Mean Platelet Volume 8.9 FL (9.6-12.0); Monocytes % 8.6 % (1.7-12.7); Neutrophils % 88.4 % (38.7-73.9); Platelet Count 221 T/CUMM (130-400); Red Blood Count 4.94 MC/CUMM (3.8-5.5); Red Cell Distribution Width 12.5 % (9.3-17.3); White Blood Count 11.1 T/CUMM (4-12)
[2020-11-02 19:14] LABS: Calcium 8.9 MG/DL (8.5-10.1); Osmolality,Calculated 286.1 MOS/KG (273-304); Potassium 3.2 MMOL/L (3.5-5.1)
[2020-11-02] MEDS: ALVIMOPAN 12 MG CAPSULE PO SCH (20:55)
[2020-11-02] MEDS: KETOROLAC 15 MG/1 ML VIAL IV SCH (20:55)
[2020-11-02] MEDS: DIVALPROEX 500 MG TABLET PO SCH (20:55)
[2020-11-02] MEDS: PRAZOSIN 1 MG CAPSULE PO SCH (20:56)
[2020-11-02] MEDS: THEOPHYLLINE ER 300 MG TABLET PO SCH (20:56)
[2020-11-02] MEDS: traZODone 50 MG TABLET PO SCH (20:56)
[2020-11-02] MEDS: SIMVASTATIN 80 MG TABLET PO SCH (20:56)
[2020-11-02] MEDS: carvediloL 6.25 MG TABLET PO SCH (20:56)
[2020-11-02] MEDS: KRILL OIL 500 MG PO SCH (20:57)
[2020-11-02 22:04] LABS: Band Neutrophils 3 % (0-10); Lymphocytes 3 % (20-55); Segmented Neutrophils 89 % (50-85); Total Cells Counted 100
[2020-11-02 22:05] LABS: Platelet Estimate Normal
[2020-11-02] MEDS: LACTATED RINGERS 1,000 ML IV SCH (22:53)
[2020-11-03] MEDS: HYDROmorphone 2 MG/1 ML VIAL IV PRN ×2 (00:10→07:01)
[2020-11-03] MEDS: KETOROLAC 15 MG/1 ML VIAL IV SCH ×4 (01:38→20:36)
[2020-11-03 06:30] LABS: Basophils % 0.1 % (0.0-0.8); Hematocrit 37.4 VOL% (42.0-52.0); Immature Granulocytes % 0.3 %; Immature Granulocytes Absolute 0.03 #; Lymphocytes # 0.6 10*3/uL (1.4-4.0); Lymphocytes % 7.1 % (21.2-54.2); Mean Corpuscular Volume 89.3 FL (87-102); Mean Platelet Volume 9.2 FL (9.6-12.0); Monocytes % 11.4 % (1.7-12.7); Neutrophils % 81.1 % (38.7-73.9); Platelet Count 204 T/CUMM (130-400); Red Blood Count 4.19 MC/CUMM (3.8-5.5); Red Cell Distribution Width 12.8 % (9.3-17.3); White Blood Count 8.8 T/CUMM (4-12)
[2020-11-03 06:50] LABS: Hemoglobin 13.1 GM/DL (14.0-18.0)
[2020-11-03 07:03] LABS: Calcium 8.4 MG/DL (8.5-10.1); Osmolality,Calculated 280.8 MOS/KG (273-304); Potassium 3.2 MMOL/L (3.5-5.1)
[2020-11-03] MEDS ORDERED: NALOXONE 0.4 MG/ML VIAL IV PRN (08:21)
[2020-11-03] MEDS ORDERED: POTASSIUM CHLORIDE RIDER 10 MEQ/100 ML PREMIX IV PRN (08:21)
[2020-11-03] MEDS: HYDROmorphone PCA 30 MG/30 ML SYRINGE IV SCH (10:02)
[2020-11-03] MEDS: POTASSIUM CHLORIDE 10 MEQ TABLET PO SCH (10:20)
[2020-11-03] MEDS: COENZYME Q10 100 MG CAPSULE PO SCH (10:20)
[2020-11-03] MEDS: ALVIMOPAN 12 MG CAPSULE PO SCH ×2 (10:20→20:36)
[2020-11-03] MEDS: MONTELUKAST 10 MG TABLET PO SCH (10:21)
[2020-11-03] MEDS: MULTIVITAMIN (CENTRUM) TABLET PO SCH (10:21)
[2020-11-03] MEDS: PANTOPRAZOLE 40 MG TABLET PO SCH (10:21)
[2020-11-03] MEDS: THEOPHYLLINE ER 300 MG TABLET PO SCH ×2 (10:21→20:36)
[2020-11-03] MEDS: SERTRALINE 100 MG TABLET PO SCH (10:21)
[2020-11-03] MEDS: DIVALPROEX 500 MG TABLET PO SCH ×2 (10:21→20:36)
[2020-11-03] MEDS: CETIRIZINE 10 MG TABLET PO SCH (10:21)
[2020-11-03] MEDS: ASPIRIN EC 81 MG TABLET PO SCH (10:21)
[2020-11-03] MEDS: POTASSIUM CHLORIDE 20 MEQ TABLET PO PRN ×4 (10:21→18:55)
[2020-11-03] MEDS: amLODIPine 5 MG TABLET PO SCH (10:21)
[2020-11-03] MEDS: LACTATED RINGERS 1,000 ML IV SCH ×2 (10:22→15:13)
[2020-11-03] MEDS: carvediloL 6.25 MG TABLET PO SCH ×2 (10:22→20:36)
[2020-11-03] MEDS: FLUTICASONE 50 MCG NASAL SPRAY 16 GM BOTTLE BOTH NARES SCH (10:29)
[2020-11-03] MEDS: ENOXAPARIN 40 MG/0.4 ML SYRINGE SUBCUT SCH (11:56)
[2020-11-03] MEDS: IPRATROPIUM 500 MCG/2.5 ML NEB RESP TX SCH ×2 (15:25→19:30)
[2020-11-03] MEDS: PRAZOSIN 1 MG CAPSULE PO SCH (20:36)
[2020-11-03] MEDS: traZODone 50 MG TABLET PO SCH (20:36)
[2020-11-03] MEDS: KRILL OIL 500 MG PO SCH (20:36)
[2020-11-03] MEDS: SIMVASTATIN 80 MG TABLET PO SCH (20:36)
[2020-11-03] MEDS: chlorproMAZINE INJ 25 MG in SODIUM CHLORIDE 0.9% 100 ML IV PRN (22:05)
[2020-11-04] MEDS: KETOROLAC 15 MG/1 ML VIAL IV SCH ×4 (02:04→20:47)
[2020-11-04] MEDS: LACTATED RINGERS 1,000 ML IV SCH ×4 (05:20→21:02)
[2020-11-04] MEDS: IPRATROPIUM 500 MCG/2.5 ML NEB RESP TX SCH ×4 (06:53→20:25)
[2020-11-04 07:11] LABS: Basophils % 0.4 % (0.0-0.8); Eosinophils # 0.1 10*3/uL (0.0-0.87); Eosinophils % 0.7 % (0.00-10.9); Hematocrit 29.7 VOL% (42.0-52.0); Hemoglobin 10.3 GM/DL (14.0-18.0); Immature Granulocytes % 0.8 %; Immature Granulocytes Absolute 0.07 #; Lymphocytes # 0.5 10*3/uL (1.4-4.0); Lymphocytes % 5.6 % (21.2-54.2); Mean Corpuscular HGB Conc 34.7 GM/DL (32-36); Mean Corpuscular Volume 90.3 FL (87-102); Mean Platelet Volume 8.9 FL (9.6-12.0); Monocytes % 11.1 % (1.7-12.7); Neutrophils % 81.4 % (38.7-73.9); Platelet Count 158 T/CUMM (130-400); Red Blood Count 3.29 MC/CUMM (3.8-5.5); Red Cell Distribution Width 12.8 % (9.3-17.3); White Blood Count 8.5 T/CUMM (4-12)
[2020-11-04 07:32] LABS: Calcium 8.3 MG/DL (8.5-10.1); Osmolality,Calculated 280.8 MOS/KG (273-304); Potassium 3.9 MMOL/L (3.5-5.1)
[2020-11-04] MEDS: COENZYME Q10 100 MG CAPSULE PO SCH (09:19)
[2020-11-04] MEDS: CETIRIZINE 10 MG TABLET PO SCH (09:19)
[2020-11-04] MEDS: MULTIVITAMIN (CENTRUM) TABLET PO SCH (09:19)
[2020-11-04] MEDS: DIVALPROEX 500 MG TABLET PO SCH ×2 (09:20→20:47)
[2020-11-04] MEDS: THEOPHYLLINE ER 300 MG TABLET PO SCH ×2 (09:20→20:46)
[2020-11-04] MEDS: SERTRALINE 100 MG TABLET PO SCH (09:20)
[2020-11-04] MEDS: PANTOPRAZOLE 40 MG TABLET PO SCH (09:20)
[2020-11-04] MEDS: ALVIMOPAN 12 MG CAPSULE PO SCH ×2 (09:20→20:46)
[2020-11-04] MEDS: amLODIPine 5 MG TABLET PO SCH (09:20)
[2020-11-04] MEDS: ASPIRIN EC 81 MG TABLET PO SCH (09:20)
[2020-11-04] MEDS: MONTELUKAST 10 MG TABLET PO SCH (09:20)
[2020-11-04] MEDS: carvediloL 6.25 MG TABLET PO SCH ×2 (09:20→20:46)
[2020-11-04] MEDS: POTASSIUM CHLORIDE 10 MEQ TABLET PO SCH (09:20)
[2020-11-04] MEDS: FLUTICASONE 50 MCG NASAL SPRAY 16 GM BOTTLE BOTH NARES SCH (09:38)
[2020-11-04] MEDS: HYDROmorphone PCA 30 MG/30 ML SYRINGE IV SCH (10:52)
[2020-11-04] MEDS: ENOXAPARIN 40 MG/0.4 ML SYRINGE SUBCUT SCH (12:03)
[2020-11-04] MEDS: HYDROmorphone 2 MG/1 ML VIAL IV PRN ×2 (13:09→23:15)
[2020-11-04 13:14] LABS: Hematocrit 30.7 VOL% (42.0-52.0); Hemoglobin 10.1 GM/DL (14.0-18.0)
[2020-11-04] MEDS: chlorproMAZINE INJ 25 MG in SODIUM CHLORIDE 0.9% 100 ML IV PRN ×2 (15:49→20:50)
[2020-11-04] MEDS: PRAZOSIN 1 MG CAPSULE PO SCH (20:46)
[2020-11-04] MEDS: SIMVASTATIN 80 MG TABLET PO SCH (20:46)
[2020-11-04] MEDS: traZODone 50 MG TABLET PO SCH (20:47)
[2020-11-04] MEDS: KRILL OIL 500 MG PO SCH (20:50)
[2020-11-05] MEDS: KETOROLAC 15 MG/1 ML VIAL IV SCH ×2 (04:42→09:41)
[2020-11-05] MEDS: chlorproMAZINE INJ 25 MG in SODIUM CHLORIDE 0.9% 100 ML IV PRN ×2 (04:48→11:12)
[2020-11-05 05:36] LABS: Basophils % 0.5 % (0.0-0.8); Eosinophils # 0.3 10*3/uL (0.0-0.87); Eosinophils % 5.2 % (0.00-10.9); Hematocrit 26.5 VOL% (42.0-52.0); Immature Granulocytes % 0.7 %; Immature Granulocytes Absolute 0.04 #; Lymphocytes # 0.6 10*3/uL (1.4-4.0); Lymphocytes % 9.9 % (21.2-54.2); Mean Corpuscular HGB Conc 33.2 GM/DL (32-36); Monocytes % 10.6 % (1.7-12.7); Neutrophils % 73.1 % (38.7-73.9); Platelet Count 148 T/CUMM (130-400); Red Blood Count 2.88 MC/CUMM (3.8-5.5); Red Cell Distribution Width 12.9 % (9.3-17.3); White Blood Count 5.7 T/CUMM (4-12)
[2020-11-05 05:37] LABS: Hemoglobin 8.8 GM/DL (14.0-18.0)
[2020-11-05 05:49] LABS: Calcium 8.2 MG/DL (8.5-10.1); Osmolality,Calculated 284.1 MOS/KG (273-304); Potassium 3.5 MMOL/L (3.5-5.1)
[2020-11-05] MEDS: IPRATROPIUM 500 MCG/2.5 ML NEB RESP TX SCH ×2 (07:52→11:13)
[2020-11-05] MEDS: POTASSIUM CHLORIDE 10 MEQ TABLET PO SCH (09:38)
[2020-11-05] MEDS: CETIRIZINE 10 MG TABLET PO SCH (09:38)
[2020-11-05] MEDS: COENZYME Q10 100 MG CAPSULE PO SCH (09:38)
[2020-11-05] MEDS: DIVALPROEX 500 MG TABLET PO SCH (09:39)
[2020-11-05] MEDS: ASPIRIN EC 81 MG TABLET PO SCH (09:39)
[2020-11-05] MEDS: SERTRALINE 100 MG TABLET PO SCH (09:39)
[2020-11-05] MEDS: POTASSIUM CHLORIDE 20 MEQ TABLET PO PRN ×2 (09:39→12:06)
[2020-11-05] MEDS: THEOPHYLLINE ER 300 MG TABLET PO SCH (09:39)
[2020-11-05] MEDS: PANTOPRAZOLE 40 MG TABLET PO SCH (09:39)
[2020-11-05] MEDS: MONTELUKAST 10 MG TABLET PO SCH (09:39)
[2020-11-05] MEDS: ALVIMOPAN 12 MG CAPSULE PO SCH (09:40)
[2020-11-05] MEDS: amLODIPine 5 MG TABLET PO SCH (09:40)
[2020-11-05] MEDS: MULTIVITAMIN (CENTRUM) TABLET PO SCH (09:40)
[2020-11-05] MEDS: carvediloL 6.25 MG TABLET PO SCH (09:40)
[2020-11-05] MEDS: FLUTICASONE 50 MCG NASAL SPRAY 16 GM BOTTLE BOTH NARES SCH (09:41)
[2020-11-05] MEDS: ENOXAPARIN 40 MG/0.4 ML SYRINGE SUBCUT SCH (11:00)
[2020-11-05 11:42] LABS: Hematocrit 26.8 VOL% (42.0-52.0)
[2020-11-05 11:49] VITALS: BP 143/66
[2020-11-29] MEDS ORDERED: ERTAPENEM 1,000 MG in SODIUM CHLORIDE 0.9% 100 ML IV ONE (06:00)
== END 2020-11-05 14:50 | disposition home health service (06) | DRG 330 ==
LOC: N.OR 05:55 → N.SDSINP 05:56 → N.3E 17:16
PROVIDERS: ADMIT Surgery; ATTEND Surgery